=== PATIENT | male | born 1935 | race Caucasian/White ===

== ENCOUNTER → 2017-03-01 | Outpatient (CLI) | payer MEDICARE, BC ==
[~2017-03-01] MED LIST: CORDARONE,PACE200 MG PO; COUMADIN ** 9/62 MG PO; MULTI VITAMIN1 EACH PO; NORVASC10 MG PO; PRILOSEC20 MG PO; ZESTRIL2.5 MG PO; ZOCOR10 MG PO
== END | disposition disaster alternative care site (69) ==
LOC: LENT 17:40
DX: C44.229 Squamous cell carcinoma of skin of left ear and external auricular canal (principal)